=== PATIENT | female | born 1970 | race Caucasian/White ===

== ENCOUNTER 2020-07-16 11:12 | Outpatient (REF) | payer MEDICARE, MEDICAID, SELFPAY ==
[2020-07-16 13:16] LABS: Erythrocyte Sedimentation Rate 6 MM/HR (0-20)
[2020-07-21 01:11] LABS: Acetylcholine Receptor Binding <0.30 nmol/L
[2020-07-24 17:42] LABS: Acetylcholine Recep Modulating 12
== END 2020-07-16 11:13 | disposition home or self-care (01) ==
LOC: HO.LAB 11:12
PROVIDERS: PCP Internal Medicine; Visit Provider Psychiatry & Neurology Neurology
DX: G70.00 Myasthenia gravis without (acute) exacerbation (principal)
CPT/HCPCS: 36415; 82550; 83519; 85652

== ENCOUNTER 2020-07-23 10:28 | Outpatient (REF) | payer MEDICARE, MEDICAID, SELFPAY ==
--- NOTE | ~2020-07-23 | MR_ITS ---
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 COMPARISON: None TECHNIQUE: Multiplanar multisequence MR imaging of the brain was done without contrast. FINDINGS: Brain Volume: Normal for age. Structural: No malformations. Brain and Meninges: The brain is normal in morphology. There is a punctate subcortical T2 hyperintensity in the right frontal white matter near the convexity. There is a 2 mm T2 hyperintensity in the left cerebral white matter at the level of the coronal radiata. There is a 4 mm subcortical white matter T2 hyperintensity in the right inferior frontal white matter. DWI imaging demonstrates no restricted diffusion. Specifically, there is no evidence for recent or acute infarct. Gradient-echo imaging demonstrates no evidence for hemorrhage, hemosiderin staining or abnormal mineral deposition. No extra-axial fluid collections, space-occupying process or mass effect. Ventricles and Subarachnoid Spaces: The ventricular system and subarachnoid spaces are within normal limits, without hydrocephalus. Orbital Structures: The visualized orbital structures appear grossly unremarkable within the limitations of the study. Vascular: Normal signal voids are noted in the visualized major intracranial vessels. Sinuses and Osseous Structures: Nasal septal deviation to the left is noted. Craniocervical junction is intact. Osseous marrow signal appears unremarkable. Small right mastoid effusion. MR/MR head/brain wo con IMPRESSION: 1. A few scattered white matter T2 hyperintensities in the cerebral hemispheres are noted which are nonspecific findings. 2. No evidence for space-occupying process, mass effect, infarction, hemorrhage, or hydrocephalus. 3. Small right mastoid effusion.
== END 2020-07-23 10:29 | disposition home or self-care (01) ==
LOC: HO.MRI 10:28
PROVIDERS: Visit Provider Psychiatry & Neurology Neurology
DX: G90.2 Horner's syndrome (principal); R20.0 Anesthesia of skin; H74.8X3 Other specified disorders of middle ear and mastoid, bilateral
CPT/HCPCS: 70551